=== PATIENT | female | born 2005 | race Caucasian/White ===

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

== ENCOUNTER 2025-04-02 13:16 | Emergency (ER) | payer BC, SELFPAY ==
[2025-04-02 13:24] VITALS: BP 111/64; PULSE 126; RESP 16; TEMP 37.7; O2SAT 96; BMI 43.2
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
--- OUTSIDE RECORDS SUMMARY | 2025-04-02 13:29 | XMS_ITS | Clinical Summary ---
Author Organization [facility] Address [address] [place] [id number] Care Team Providers Care Receiving Team Member Name Role Phone Sriram Davis MD Primary Care Provider [phone] Source Comments [facility] is fully rolled out with thefollowing exceptions:General Clinical Research [facility] Allergies No known active allergies Medications No known medications Social History Tobacco Use Types Packs/Day Years Used Date Smoking Tobacco: Never Assessed Comments Unknown Sex and Gender Information Value Date Recorded Sex Assigned at Not on file Legal Sex Female 5:30 AM EST Gender Identity Not on file Sexual Orientation Not on file Last Filed Vital Signs Vital Sign Reading Time Taken Comments Blood Pressure 115/58 12/23/2010 8:42 PM EDT Pulse 84 12/23/2010 8:42 PM EDT Temperature 37 C (98.6 F) 12/23/2010 8:42 PM EDT Respiratory Rate 20 12/23/2010 8:42 PM EDT Oxygen Saturation - - Inhaled Oxygen Concentration - - Weight 30.4 kg (67 lb 0.3 oz) 12/23/2010 8:39 PM EDT Height - - Body Mass Index - - Plan of Treatment Health Maintenance Due Date Last Done Comments HPV IMMUNIZATION (1 - 3-dose series) 2020 MENINGOCOCCAL B VACCINE (1 of 2 - Standard) 2021 Yearly Physical Ages 3-18+ 06/04/202406/04, 04/16/2021, 08/26/2018, Additional history exists AMB SEASONAL FLU VACCINE (#1) 12/06/2024 01/18/2020, 01/23/2019, 06/01/2012, Additional history exists COVID-19 Vaccine (1 - 2024- season) 2024 DTAP/Tdap/Td IMMUNIZATION (8 - Td or Tdap) 07/13/2026 07/13/2016, 07/13/2016, 11/28/2009, Additional history exists PNEUMOCOCCAL IMMUNIZATION Aged Out 2006, 04/15/2006, 01/28/2006 No longer eligible based on patient's age to complete this topic HEPATITIS B IMMUNIZATION Completed 007, 06/11/2006, 06/11/2006, Additional history exists HEPATITIS A IMMUN (OPTIONAL 2-17 YRS) Discontinued 06/23/2007, 12/23/2006 HIB IMMUNIZATION Completed 11/28/2009, , 06/11/2006, Additional history exists IPV IMMUNIZATION Completed 11/28/2009, , 06/11/2006, Additional history exists MMR IMMUNIZATION Completed 11/28/2009, 12/23/2006 VARICELLA IMMUNIZATION Completed 11/28/2009, 2006 MCV4 IMMUNIZATION Completed 12/10/2021, 11/27/2016 Respiratory Syncytial Virus (RSV) <20mo Aged Out No longer eligible based on patient's age to complete this topic Insurance [employer]AKRISHNA TREVINO NON-TRADITIONAL Care Teams Receiving Team Member Relationship Specialty Start Date End Date Sriram Davis MD [place] [address] [employer] [place] [address] PCP - General External Family Practice 12/23/10
--- OUTSIDE RECORDS SUMMARY | 2025-04-02 13:29 | XMS_ITS | Patient Health Record ---
Author Organization [facility] Address [address] [place] [address] Care Team Providers Care Exam Proctor Name Role Phone Unknown, PCP Primary Care Provider Unavailabl e Allergies No Known Allergies Reason For Referral No Information Medications Medication SIG (Take, Route, Frequency, Duration) Notes Start Date End Date Status Vitamin D3 250 MCG (11150 UT) 1 capsule Orally weekly Active Nexplanon 68 MG as directed Subcutaneous Active traZODone HCl 50 MG 1 tablet at bedtime as needed Orally Once a day Active Ondansetron 4 MG 1 tablet on the tongue and allow to dissolve Orally every 8 hours; Duration: 5 days Please call [phone] for any questions or concerns regarding this patient's prescriptions 01/20/2024 Active Social History Tobacco Use: Social History Observation Description Date Details (start date - stop date) Never Smoker NA - NA Tobacco Control (Standard) Question Answer Notes Tobacco use: Nonsmoker Problems Problem Type SNOMED Code ICD Code Onset Dates Problem Status W/U Status Risk Notes Problem Acute gastroenteritis (44532109) Acute gastroenteritis (K52.9) Active confirmed Problem Viral illness (50150349) Viral illness (B34.9) Active confirmed Plan Of Treatment No Information Insurance Providers Payer Name Payer Address Payer Phone Subscriber Number Group Number Insured Name Patient Relationship to Insured Coverage Start Date Coverage End Date [employer] [facility] [address] [place] [address] [phone] [id number] Bryan Owen Self - patient is the insured [facility] MED[facility] [address] [place] [phone] [id number] Bryan Owen Self - patient is the insured Medical (General) History Medical History History ICD Code Vitamin D deficiency Depression Insomnia Anxiety PCOS Factor V Liden Disease Surgical History Surgery Date(Month/Year) Myringotomy Wids[place] teeth removed Pylondial Cyst repair x 3 2020 Hospitalization History Reason Date(Month/Year) Pneumonia See above
--- OUTSIDE RECORDS SUMMARY | 2025-04-02 13:29 | XMS_ITS | Clinical Summary ---
Author Organization [facility] Address [address] [place], [place] [id number] Phone [email or web address] Care Team Providers Care Summer Nanny Name Role Phone Unavailable Primary Care Provider Unavailabl e Allergies No known active allergies Medications hydrOXYzine (VISTARIL) 25 MG capsule Take 25 mg by mouth every night. 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 Encouraged healthy diet and exercise. Social History Tobacco Use Types Packs/Day Years Used Date Smoking Tobacco: Never Smokeless Tobacco: Never Tobacco Cessation:Counseling Given: Not Answered Stress Answer Date Recorded Stress in your Life Not on file 02/15/2024 Dealing with Stress 3 02/15/2024 Comments Unknown Sex and Gender Information Value Date Recorded Sex Assigned at Not on file Legal Sex Female 12:02 AM [employer]ONDANT [employer] Gender Identity Not on file Sexual Orientation Not on file Last Filed Vital Signs Vital Sign Reading Time Taken Comments Blood Pressure 104/72 07/15/2024 10:39 AM EDT Pulse 102 07/15/2024 10:39 AM EDT Temperature 36.8 C (98.3 F) 07/15/2024 10:39 AM EDT Respiratory Rate - - Oxygen Saturation 97% 07/15/2024 10: 39 AM EDT Inhaled Oxygen Concentration - - Weight 148 kg (326 lb 6.4 oz) 10:39 AM EDT Height 165.1 cm (5' 5 ) 07/15/2024 10:3 9 AM EDT Body Mass Index 54.32 07/15/2024 10:39 AM EDT Body Mass Index Percentile 99.99% 07/15 10:39 AM EDT Growth Chart: [facility] (Girls, 2- 20 Years) Plan of Treatment Health Maintenance Due Date Last Done Comments Dental Cleaning/Exam 2005 HIV Screening 2005 Hepatitis C Screening 2005 HPV Immunization (1 - 3-dose series) 2020 Men B Immunization (1 of 2 - Standard) 2021 Hep B Infection Screening - Triple Screen 11/27/2023 Covid-19 Immunization ( season) 2024 Influenza Immunization (#1) 2024 10/0 05/2023, 01/18/2020, 01/23/2019, Additional history exists Annual Preventive Exam 07/15/2025 07/15/2024 Tetanus Diphtheria and Pertussis Immunization (8 - Td or Tdap) 07/13/2026 07/13/2016, 07/13/2016, 11/28/2009, Additional history exists Pneumococcal Immunization Aged Out 2006, 04/15/2006, 01/28/2006, Additional history exists No longer eligible based on patient's age to complete this topic Hepatitis B Immunization Completed 007, 06/11/2006, 06/11/2006, Additional history exists Hepatitis A Immunization Completed 06/23/2007, 12/06 HIB Immunization Completed 11/28/2009, , 06/11/2006, Additional history exists MMR Immunization: At-Risk Member Discontinued 11/28/2009, 12/23/2006 Polio Immunization Completed 11/28/2009, 0 11/28/2009, 06/11/2006, Additional history exists Varicella Immunization Completed 11/28/2009, 2006 Meningococcal Immunization Completed 12/10/2021,
[2025-04-02 13:30] VITALS: BP 128/78; PULSE 122; O2SAT 96
--- NOTE | 2025-04-02 13:34 | XR_ITS ---
PROCEDURE INFORMATION: Exam: XR Chest Exam date and time: 04/02/2025 1:42 PM Age: 19 years old Clinical indication: Cough and shortness of breath; Additional info: Soa- flu TECHNIQUE: Imaging protocol: Radiologic exam of the chest. Views: 2 views. COMPARISON: CR XR CHEST PORTABLE 04/18/2021 1:45 PM FINDINGS: Lungs: Normal. Pleural spaces: Normal. Heart/Mediastinum: Normal. Bones/joints: No acute abnormality. IMPRESSION: No acute findings.
--- NOTE | 2025-04-02 13:36 | ED_ITS ---
Discharge Plan Disposition Patient Disposition: Home, Self-Care Condition: Good Prescriptions Prescriptions: New xgjqxyclonopvbb-bnfhyzxte-XH [Bromfed DM] 2-30-10 mg/5 mL syrup 5 ml PO Q6H PRN (Reason: sinus symptoms) 3 Days Qty: 118 0RF No Action Nexplanon 68 mg Implant 68 mg SUBDERMAL CONT Referrals Follow up/Referrals: Sriram Davis [Primary Care Provider, Medical] - See instructions Activity Restrictions/Add. Instructions Additional Instructions/Restrictions: No sign of a bacterial infection. Likely viral. Viruses can take 7-14 days to run their course. Nasal saline and bulb syringe or nose Sherri to remove nasal drainage to help with nasal congestion. Hard to eat, drink, sleep with nasal congestion so important to keep this cleaned out. Monitor temp. Tylenol or Motrin as needed for pain or fever Encourage fluids, water, Gatorade, Powerade, Pedialyte if infant/toddler/child Warm salt water gargles Warm fluids Sore throat lozenges Sleep elevated Humidifier/vaporizer Follow-up immediately for new or worsening symptoms or no noticeable improvement over the next 48-72 hours. Clinical Impressions Clinical Impression: Influenza A, Laryngitis Instructions Patient Instructions: Influenza, DI for Laryngitis Print Language Print Language: [place]raini Discharge ED Provider: Bertin Burton General Adult HPI <Juventino Swift ([facility]), SITE SAFETY MANAGER - Last Filed: 04/02/25 14:59> General Stated complaint: Diagnosed Flu A / SOA Time Seen by Provider: 04/02/25 13:19 Mode of Arrival: Ambulatory Source of Information: Patient Description of Symptoms (Recalled from ER Triage Doc. by RN): Patient states she was diagnosed with Flu A yesterday and they didn't give me anything Patient states she took 600 mg Ibuprofen at 1000 and some Nyquil at 0200 but nothing for her cold/flu symptoms. History of Present Illness HPI narrative: 19-year-old female presents for shortness of breath, hoarseness and sore throat. Patient states she has had symptoms for 4 days was seen at the urgent care yesterday and was diagnosed with flu. Patient states they did not give her anything. Patient states she took 600 ibuprofen at 10 AM this morning and NyQuil at 2 AM and her symptoms remain the same. Mom states patient gets pneumonia easily and wanted to get her checked out. Related Data Home Medications ?Medication ?Instructions ?Recorded ?Confirmed etonogestrel 68 mg subdermal 68 mg subdermal CONT horm one 01/13/23 04/01/25 implant (Nexplanon) Previous Rx's ?Medication ?Instructions ?Recorded afahrolcciicksl-pbaliarzalxaopy-YI 5 ml PO Q6H PRN sin us symptoms 3 04/02/25 2 mg-30 mg-10 mg/5 mL oral syrup days #118 mL (Bromfed DM) Allergies Allergy/AdvReac Type Severity Reaction Status Date / Time No Known Allergies Allergy Verified 04/01/25 16:25 PFS <Juventino Swift ([facility]), SITE SAFETY MANAGER - Last Filed: 04/02/25 14:59> [facility] Disclaimer: The information contained in this section may have been updated after the patient was seen, as this information can be updated by other users. Medical History (Updated 04/02/25 @ 14:59 by Juventino Swift ([facility]), SITE SAFETY MANAGER) Influenza A Strep throat Nexplanon in place Factor V Leiden PCOS (polycystic ovarian syndrome) Pilonidal cyst Anemia Anxiety Migraine Strep throat Acute viral syndrome UTI (urinary tract infection) Allergic rhinitis Bronchitis Viral syndrome Pain, dental Sinusitis Exposure to COVID-19 virus Abdominal pain Contusion of leg, left Leg sprain Viral upper respiratory illness Sinus headache Pharyngitis URI (upper respiratory infection) Ingrown nail of great toe of right foot Surgical History Status post surgical removal of pilonidal cyst History of wisdom tooth extraction History of tympanostomy tube placement Family History Other Coronary artery disease Diabetes Heart attack Hyperlipidemia Hypertension Stroke Social History Smoking Status: Never smoker second hand exposure: No alcohol intake: never substance use type: denies use current occupational status: other Travel in the last 8 weeks?: None household members: family housing: house current occupational exposures/hazards: No caffeine: Yes Have you lived/traveled outside [place] in past 30 days?: No Contact w/someone who lives/traveled outside [place] past 30 days?: No Exposure to someone with infectious disease in past 14 days?: No Do you have a fever (greater than 100.4 F or 38 C)?: No Have you tested positive for COVID-19?: No Exposed to someone with COVID-19 in past 14 days?: No Do you have a sore throat?: No Do you have a cough?: No Do you have any weakness?: No Do you have any diarrhea?: No Are you experiencing any unusual bleeding?: No Do you have any muscle aches/pain?: No Do you have any abdominal pain?: No Are you experiencing loss of taste or smell?: No Other Medical History Have you received the Flu Vaccine for this season: No Have you received the Pneumonia Vaccine: No <Juventino Swift ([facility]), SITE SAFETY MANAGER - Last Filed: 04/02/25 14:59> ROS Obtained: Yes Systems reviewed as appropriate & no additional complaints except as documented ENT Ears, Nose, Mouth, and Throat: Reports system reviewed and no additional complaints, except as documented, Reports as per HPI, Reports nasal congestion, Reports nasal discharge and Reports sore throat Respiratory Respiratory: Reports system reviewed and no additional complaints, except as documented, Reports as per HPI, Reports shortness of breath, Reports chest congestion and Reports cough Physical Exam <Juventino Swift ([facility]), SITE SAFETY MANAGER - Last Filed: 04/02/25 14:59> General General appearance: alert and in no apparent distress Eye Eye exam: Present normal appearance and PERRL ENT ENT exam: Present normal exam Respiratory Respiratory exam: Present normal lung sounds bilaterally Cardiovascular Cardiovascular exam: Present regular rate and normal rhythm Neurological Exam Neurological exam: Present alert and oriented X3 Skin Skin exam: Present warm and intact Medical Decision Making <Juventino Swift ([facility]), SITE SAFETY MANAGER - Last Filed: 04/02/25 14:59> Medical Records Medical records reviewed: Yes I reviewed the patient's medical records. Screening: Per USPSTF and CDC recommendations, given the prevalence of disease in our region, it is our hospital?s policy to screen for HIV and viral Hepatitis for al l patients aged 18 and over and those with ongoing risk factors. [place] Inquiry Pt receiving controlled substance: No Vital Signs: 04/02/25 13:24 04/02/25 13:30 04/02/25 13:45 Temperature 99.9 F H Temperature Source Oral Pulse Rate 122 H 129 H Pulse Rate [Right Brachial] 126 H Respiratory Rate 16 Blood Pressure 128/78 125/74 Blood Pressure [Right Arm] 111/64 Blood Pressure Mean [Right Arm] 79 Blood Pressure Source [Right Arm] Automatic Cuff Blood Pressure Position [Right Arm] Sitting 02 Sat by Pulse Oximetry 96 96 97 Oxygen Delivery Method Room Air Room Air Room Air 04/02/25 14:00 Temperature Temperature Source Pulse Rate 126 H Pulse Rate [Right Brachial] Respiratory Rate Blood Pressure 118/71 Blood Pressure [Right Arm] Blood Pressure Mean [Right Arm] Blood Pressure Source [Right Arm] Blood Pressure Position [Right Arm] 02 Sat by Pulse Oximetry 97 Oxygen Delivery Method Room Air Lab Data Lab results reviewed: Yes I reviewed the patient's lab results. Lab Results 04/02/25 14:15: Group A Strep Rapid Negative Orders (Tests/Meds): ED MEDICATIONS Discontinued Medications Generic Name Dose Route Start Last Admin Trade Name Freq PRN Reason Stop Dose Admin Dexamethasone Sodium Phosphate 10 mg 04/02/25 14:57 04/02/25 15:08 Dexamethasone 4mg/Ml 1ml Vial IM 04/02/25 14:58 10 mg ONCE ONE Administration ORDERS Category Date Time Status Chest XR 2 view (NOT portable) [XR chest 2V] Stat Exams 04/02/25 13:34 Taken Strep Scrn Group A (Rapid) Stat Lab 04/02/25 14:15 Completed Strep Screen Confirmation Stat Micro 04/02/25 14:15 Received Medical Decision Narrative: In summary patient is a 19-year-old female who presents to the emergency department for evaluation of shortness of breath and sore throat for 4 days. Patient was seen at urgent care yesterday and diagnosed with flu.. Patient is hemodynamically stable upon arrival, temperature 99.9. Unremarkable physical exam. Differential diagnosis includes flu, atypical pneumonia, strep. Initial workup will be conducted with swab for strep, chest x-ray. Initial inventions include p.o. challenge. Initial workup reviewed by nh strep swab-negative, chest x-ray, viral pneumonia. Upon repeat evaluation patient sitting on the side of the bed not requiring oxygen. Given this patient appropriate for disc harge at this time will discharge home. <Bertin Burton MD - Last Filed: 04/02/25 15:13> Vital Signs: 04/02/25 13:24 04/02/25 13:30 04/02/25 13:45 Temperature 99.9 F H Temperature Source Oral Pulse Rate 122 H 129 H Pulse Rate [Right Brachial] 126 H Respiratory Rate 16 Blood Pressure 128/78 125/74 Blood Pressure [Right Arm] 111/64 Blood Pressure Mean [Right Arm] 79 Blood Pressure Source [Right Arm] Automatic Cuff Blood Pressure Position [Right Arm] Sitting 02 Sat by Pulse Oximetry 96 96 97 Oxygen Delivery Method Room Air Room Air Room Air 04/02/25 14:00 Temperature Temperature Source Pulse Rate 126 H Pulse Rate [Right Brachial] Respiratory Rate Blood Pressure 118/71 Blood Pressure [Right Arm] Blood Pressure Mean [Right Arm] Blood Pressure Source [Right Arm] Blood Pressure Position [Right Arm] 02 Sat by Pulse Oximetry 97 Oxygen Delivery Method Room Air Lab Data Lab Results 04/02/25 14:15: Group A Strep Rapid Negative Orders (Tests/Meds): ED MEDICATIONS Discontinued Medications Generic Name Dose Route Start Last Admin Trade Name Freq PRN Reason Stop Dose Admin Dexamethasone Sodium Phosphate 10 mg 04/02/25 14:57 04/02/25 15:08 Dexamethasone 4mg/Ml 1ml Vial IM 04/02/25 14:58 10 mg ONCE ONE Administration ORDERS Category Date Time Status Chest XR 2 view (NOT portable) [XR chest 2V] Stat Exams 04/02/25 13:34 Taken Strep Scrn Group A (Rapid) Stat Lab 04/02/25 14:15 Completed Strep Screen Confirmation Stat Micro 04/02/25 14:15 Received Medical Decision Narrative: In summary patient is a 19-year-old female who presents to the emergency department for evaluation of shortness of breath and sore throat for 4 days. Patient was seen at urgent care yesterday and diagnosed with flu.. Patient is hemodynamically stable upon arrival, temperature 99.9. Unremarkable physical exam. Differential diagnosis includes flu, atypical pneumonia, strep. Initial workup will be conducted with swab for strep, chest x-ray. Initial inventions include p.o. challenge. Initial workup reviewed by me strep swab-negative, chest x-ray, viral pneumonia. Upon repeat evaluation patient sitting on the side of the bed not requiring oxygen. Given this patient appropriate for discharge at this time will discharge home. Bertin Burton MD: I was consulted by the HENRRY, and we discussed the complexity of the problems being addressed. I approved the treatment and management plan for this patient's care in the emergency department, thus performing a substantive portion of the medical decision making. Patient has known influenza and laryngitis is ranging her neck freely and no concern for deep space infection no hypoxic respiratory failure on exam I believe her tachycardia is driven by viremia she is otherwise well-appearing and moving air well in all lung huber. Will be discharged with a course of steroids and supportive medication and was given multiple return precautions and verbalized understanding. Critical Care <Juventino Swift ([facility]), SITE SAFETY MANAGER - Last Filed: 04/02/25 14:59> Critical Care Time Critical Care Time: No
[2025-04-02 13:45] VITALS: BP 125/74; PULSE 129; O2SAT 97
[2025-04-02 14:00] VITALS: BP 118/71; PULSE 126; O2SAT 97
[2025-04-02 14:28] LABS: Strep Scrn Group A (Rapid) Negative (Negative)
[2025-04-02] MEDS: DEXAMETHASONE 4MG/ML 1ML VIAL 10 MG IM (15:08)
[2025-04-02 15:19] VITALS: BP 110/61; PULSE 130; RESP 20; TEMP 36.9; O2SAT 98
== END 2025-04-02 15:26 | disposition home or self-care (01) ==
PROVIDERS: Nurse Practitioner Family; Emergency Provider Emergency Medicine; PCP Pediatrics
DX: J09.X2 Influenza due to identified novel influenza A virus with other respiratory manifestations (principal); R06.02 Shortness of breath; Z79.3 Long term (current) use of hormonal contraceptives
CPT/HCPCS: 71046; 87430; 96372; 99283; 99284; J1100